=== PATIENT | female | born 1945 | race African-American/Black ===

== ENCOUNTER 2024-01-25 22:47 | Inpatient (IN) | payer OTHER ==
[~2024-01-25] VITALS: Ht 162.6 cm; Wt 64.9 kg
[2024-01-25 22:56] VITALS: O2SAT 96
[2024-01-26 00:02] LABS: CARBON DIOXIDE 22 mEq/L (21-32); CHLORIDE 104 mEq/L (98-107); POTASSIUM 3.8 mEq/L (3.5-5.1); SODIUM 135 mEq/L (136-145)
[2024-01-26 00:03] LABS: CALCIUM 8.9 mg/dL (8.7-10.4)
[2024-01-26 00:08] LABS: CREATININE 0.7 mg/dL (0.6-1.0); GLUCOSE 134 mg/dL (70-105); UREA NITROGEN BLOOD 11 mg/dL (9-23)
[2024-01-26 00:09] LABS: ALANINE AMINOTRANSFERASE 26 IU/L (10-49); ASPARTATE AMINOTRANSFERASE 81 IU/L (<34)
[2024-01-26 00:10] LABS: ALBUMIN 4.2 g/dL (3.2-4.8); BILIRUBIN TOTAL 0.5 mg/dL (0.1-1.0); CREATINE KINASE > 1300 IU/L (34-145); PROTEIN TOTAL 6.4 g/dL (6.0-8.3)
[2024-01-26 01:08] LABS: BASOPHILS % 0.1 % (0.0-2.0); DIFFERENTIAL COMMENT 0; HEMATOCRIT. 35.5 % (36.0-48.0); HEMOGLOBIN. 11.3 g/dL (12.0-16.0); LYMPHOCYTES % 7.4 % (20.0-50.0); MEAN CORPUSCULAR HEMOGLOBIN 24.2 pg (28.0-32.0); MEAN CORPUSCULAR HGB CONC 31.7 g/dL (31.0-37.0); MEAN CORPUSCULAR VOLUME 76.4 fL (81.0-99.0); MEAN PLATELET VOLUME 9.4 fl (7.4-10.4); MONOCYTES % 5.7 % (2.0-8.0); NEUTROPHILS % 86.8 % (40.0-76.0); PLATELET 210 x1000/uL (130-400); RED BLOOD CELL COUNT 4.65 mill/uL (4.2-5.4); RED CELL DISTRIBUTION WIDTH 16.9 % (11.6-14.6)
[2024-01-26] MEDS: LACTATED RINGERS 1,000 ML IV SCH (03:40)
[2024-01-26 06:16] LABS: CLARITY URINE TURBID (CLEAR); COLOR URINE YELLOW (YELLOW); GLUCOSE URINE NEGATIVE (NEGATIVE); KETONES URINE NEGATIVE (NEGATIVE); LEUKOCYTE ESTERASE URINE TRACE (NEGATIVE); NITRITE URINE NEGATIVE (NEGATIVE); OCCULT BLOOD URINE NEGATIVE (NEGATIVE); PH URINE >=9.0 (4.5-8.0); PROTEIN URINE 1+ (NEGATIVE); SPECIFIC GRAVITY URINE 1.024 (1.005-1.030); UROBILINOGEN URINE 0.2 E.U./dL (0.2-1.0)
[2024-01-26 08:28] LABS: BACTERIA URINE 3+; RBC URINE NONE SEEN /hpf (0-2); SQUAMOUS EPITHELIAL CELL URINE 1+ /lpf (RARE/1+); TRIPLE PHOSPHATE CRYSTAL URINE 1+ /lpf; WBC URINE NONE SEEN /hpf (0-2)
[2024-01-26 09:47] VITALS: BP 130/60; PULSE 65; RESP 20; TEMP 97.9
[2024-01-26 09:56] VITALS: BP 130/60; PULSE 65; RESP 20; TEMP 97.9
[2024-01-26] MEDS ORDERED: GUAIFENESIN 200MG/10ML SUGAR FREE UDC PO PRN (10:00)
[2024-01-26] MEDS ORDERED: ONDANSETRON HCL 4MG/2ML INJ IV PRN (10:00)
[2024-01-26] MEDS ORDERED: SODIUM CHLORIDE 0.45% 1,000 ML IV SCH (10:00)
[2024-01-26] MEDS ORDERED: DOCUSATE SODIUM 100MG CAPSULE PO PRN (10:00)
[2024-01-26] MEDS ORDERED: TRAMADOL 50MG TABLET PO PRN (10:00)
[2024-01-26] MEDS ORDERED: NALOXONE HCL 0.4MG/ML VIAL IV PRN (10:15)
[2024-01-26] MEDS: MULTIVITAMINS,THER W-MINERALS TABLET PO SCH (11:33)
[2024-01-26 12:00] VITALS: BP 127/58; PULSE 70; RESP 17; TEMP 97
[2024-01-26] MEDS: ACETAMINOPHEN 325MG TABLET PO PRN (13:26)
[2024-01-26] MEDS: SODIUM CHLORIDE 0.9% 1,000 ML IV SCH (15:30)
[2024-01-26] MEDS ORDERED: ACETAMINOPHEN 650MG/20.3ML UDC PO PRN (15:30)
[2024-01-26 16:00] VITALS: BP 128/60; PULSE 68; RESP 17; TEMP 97.7
[2024-01-26] MEDS: ENOXAPARIN 40MG/0.4ML SYR SUBCUT SCH (16:25)
[2024-01-26 20:00] VITALS: BP 126/64; PULSE 78; RESP 18; TEMP 97.7
[2024-01-26] MEDS: HYDROCODONE/ACETAMINOPHEN 5/325MG TABLET PO PRN (21:23)
[2024-01-27] VITALS: BP 125/81; PULSE 65; RESP 18; TEMP 97.5
[2024-01-27 04:00] VITALS: BP 122/85; PULSE 85; RESP 19; TEMP 97.8
[2024-01-27 06:50] LABS: BASOPHILS % 0.2 % (0.0-2.0); DIFFERENTIAL COMMENT 0; EOSINOPHILS % 0.1 % (0.0-5.0); HEMATOCRIT. 30.2 % (36.0-48.0); HEMOGLOBIN. 9.8 g/dL (12.0-16.0); LYMPHOCYTES % 9.5 % (20.0-50.0); MEAN CORPUSCULAR HEMOGLOBIN 24.5 pg (28.0-32.0); MEAN CORPUSCULAR HGB CONC 32.5 g/dL (31.0-37.0); MEAN CORPUSCULAR VOLUME 75.4 fL (81.0-99.0); MEAN PLATELET VOLUME 9.7 fl (7.4-10.4); MONOCYTES % 10.5 % (2.0-8.0); NEUTROPHILS % 79.7 % (40.0-76.0); PLATELET 180 x1000/uL (130-400); RED BLOOD CELL COUNT 4.01 mill/uL (4.2-5.4); RED CELL DISTRIBUTION WIDTH 16.9 % (11.6-14.6); WHITE BLOOD COUNT 7.5 x1000/uL (4.5-11.0)
[2024-01-27 06:54] LABS: CREATINE KINASE > 1300 IU/L (34-145); LDL CHOLESTEROL 42 mg/dL (5-100); TRIGLYCERIDE 73 mg/dL (0-150)
[2024-01-27 06:55] LABS: CHOLESTEROL 116 mg/dL (<200); HDL CHOLESTEROL 54 mg/dL (>65)
[2024-01-27 06:56] LABS: T4 FREE 0.98 ng/dL (0.89-1.76); THYROID STIMULATING HORMONE 2.43 uIU/mL (0.55-4.78)
[2024-01-27 08:00] VITALS: BP 121/54; PULSE 76; RESP 18; TEMP 99
[2024-01-27 09:01] LABS: CHLORIDE 108 mEq/L (98-107); POTASSIUM 4.5 mEq/L (3.5-5.1); SODIUM 138 mEq/L (136-145)
[2024-01-27 09:02] LABS: CARBON DIOXIDE 25 mEq/L (21-32)
[2024-01-27 09:03] LABS: CALCIUM 8.2 mg/dL (8.7-10.4)
[2024-01-27 09:07] LABS: CREATININE 0.7 mg/dL (0.6-1.0)
[2024-01-27 09:08] LABS: GLUCOSE 85 mg/dL (70-105); UREA NITROGEN BLOOD 19 mg/dL (9-23)
[2024-01-27 12:00] VITALS: BP 113/62; PULSE 68; RESP 18; TEMP 98.8
[2024-01-27 16:00] VITALS: BP 98/41; PULSE 83; RESP 18; TEMP 99.3
[2024-01-27 20:00] VITALS: BP 119/60; PULSE 67; RESP 18; TEMP 97.2
[2024-01-28] VITALS: BP 117/60; PULSE 65; RESP 18; TEMP 97.3
[2024-01-28 04:00] VITALS: BP 116/51; PULSE 67; RESP 18; TEMP 97.5
[2024-01-28 08:00] VITALS: BP 112/55; PULSE 76; RESP 18; TEMP 97.5
[2024-01-28 08:59] LABS: CHLORIDE 109 mEq/L (98-107); SODIUM 140 mEq/L (136-145)
[2024-01-28 09:00] LABS: CALCIUM 8.7 mg/dL (8.7-10.4); CARBON DIOXIDE 25 mEq/L (21-32)
[2024-01-28 09:05] LABS: CREATININE 0.6 mg/dL (0.6-1.0); GLUCOSE 90 mg/dL (70-105); UREA NITROGEN BLOOD 11 mg/dL (9-23)
[2024-01-28 12:00] VITALS: BP 117/58; PULSE 78; RESP 18; TEMP 97.8
[2024-01-28 16:00] VITALS: BP 114/61; PULSE 72; RESP 18; TEMP 97.6
== END 2024-01-28 18:50 | disposition short-term general hospital (02) | DRG 558 ==
LOC: ER 22:47 → 5WST 01-26 02:24 → EDBEDREQ 01-26 03:32 → 6WST 01-26 09:09
PROVIDERS: ADMIT Hospitalist; ATTEND Hospitalist
DX: M62.82 Rhabdomyolysis (principal); M19.012 Primary osteoarthritis, left shoulder; Z60.8 Other problems related to social environment; Z88.0 Allergy status to penicillin; Z79.899 Other long term (current) drug therapy
CPT/HCPCS: 36415; 73030; 80048; 80053; 80061; 81003; 82550; 84439; 84443; 85025; 93970; 97162; 97165; 97530; 99285; J1650; J7030